=== PATIENT | male | born 1960 | race Caucasian/White ===

== ENCOUNTER 2017-07-01 23:28 | Emergency (ER) | payer OTHER ==
[~2017-07-01] VITALS: Ht 172.7 cm; Wt 122.0 kg
[2017-07-01] MEDS ORDERED: IV D5W-0.45% NS +20 KCL 1,000 ML IV ONE (23:45)
[2017-07-02] MEDS ORDERED: IV D5 1/2 NS 1000 ML 1,000 ML IV ONE (00:11)
[2017-07-02 00:30] LABS: CARBON DIOXIDE 23 mmol/L (21-32); CHLORIDE 95 mmol/L (98-107); CREATININE 0.9 mg/dL (0.6-1.3); GLUCOSE 81 mg/dL (74-106); POTASSIUM 4.4 mmol/L (3.5-5.1); UREA NITROGEN, BLOOD 8 mg/dL (7-18)
[2017-07-02 00:31] LABS: ETHANOL 286 MG/DL (0-0)
[2017-07-02 00:33] LABS: BASOPHILS % (AUTO) 0.4 % (0.0-2.0); EOSINOPHILS # (AUTO) 0.2 K/uL (0.0-0.7); EOSINOPHILS % (AUTO) 2.4 % (0.0-7.0); HEMATOCRIT 45.4 % (36.7-47.1); HEMOGLOBIN 15.7 g/dL (12.5-16.3); LYMPHOCYTES # (AUTO) 2.6 K/uL (20.0-40.0); MEAN CORPUSCULAR HEMOGLOBIN 34.4 uug (23.8-33.4); MEAN CORPUSCULAR HGB CONC 35 g/dL (32.5-36.3); MEAN CORPUSCULAR VOLUME 99.5 fL (73.0-96.2); MONOCYTES # (AUTO) 0.8 K/uL (2.0-10.0); MONOCYTES % (AUTO) 9.2 % (0.0-11.0); NEUTROPHILS # (AUTO) 5.1 K/uL (1.8-8.9); PLATELET COUNT (AUTO) 230 K/uL (152-348); RED BLOOD CELL COUNT(AUTO) 4.57 MIL/uL (4.06-5.63); WHITE BLOOD COUNT (AUTO) 8.8 K/uL (3.6-10.2)
[2017-07-02 00:35] LABS: ALANINE AMINOTRANSFERASE 22 U/L (16-63); ALKALINE PHOSPHATASE 57 U/L (50-136); ASPARTATE AMINOTRANSFERASE 19 U/L (15-37); BILIRUBIN,DIRECT 0.1 mg/dL (0.0-0.2); BILIRUBIN,TOTAL 0.3 mg/dL (0.2-1.0)
[2017-07-02 00:36] LABS: ACETAMINOPHEN < 2.0 ug/mL (10-30)
[2017-07-02 00:43] LABS: THYROID STIMULATING HORMONE 3.471 mIU/mL (0.358-3.740)
--- NOTE | 2017-07-02 01:23 | NUR ---
BP LOW, DR. GIBSON NOTIFIED. PATIENT IS A/O, TALKING WIOTH FAMILY, DENIES ANY DIZZINESS. IVF INFUSING.
--- NOTE | 2017-07-02 01:29 | NUR ---
SPOKE WITH JNONIE FROM [facility]. AWAITING CALL BACK FROM ROCA[facility] S[facility]LER.
[2017-07-02] MEDS ORDERED: IV NORMAL SALINE 1000 ML BAG IV ONE (01:30)
--- NOTE | 2017-07-02 02:00 | NUR ---
Reinstructed patient need for urine sample for urinalysis/culture.
--- NOTE | 2017-07-02 03:00 | NUR ---
Patient sleeping comfortably in bed. No acute distress
--- NOTE | 2017-07-02 04:00 | NUR ---
Notified MD of patient somewhat hypotensive despite IVF. No new orders. Per MD, patient is BP stable
[2017-07-02 05:13] LABS: *BILIRUBIN,URIN NEGATIVE (NEGATIVE); *BLOOD, URINE NEGATIVE (NEGATIVE); *CLARITY,URINE CLEAR (CLEAR); *COLOR,URINE STRAW (YELLOW); *KETONES,URINE NEGATIVE (NEGATIVE); *PROTEIN,URINE NEGATIVE (NEGATIVE); *UROBILINOGEN,URINE 0.2 E.U./dl (NORMAL); LEUKOCYTE ESTERASE ,URINE NEGATIVE (NEGATIVE); NITRITE, URINE NEGATIVE (NEGATIVE); UGLUCOSE NEGATIVE (NEGATIVE)
[2017-07-02 05:22] LABS: BACTERIA,URINE NONE SEEN /HPF (NONE SEEN); RBC,URINE NONE SEEN /HPF (0-3); SQUAMOUS EPITHELIAL CELL,UR FEW /HPF (NONE SEEN); WBC,URINE NONE SEEN /HPF (0-3)
[2017-07-02 05:35] LABS: *AMPHETAMINE, URINE NEGATIVE (NEGATIVE); *BARBITURATE, URINE NEGATIVE (NEGATIVE); *CANNABINOID, URINE NEGATIVE (NEGATIVE); *COCCAINE, URINE NEGATIVE (NEGATIVE); *OPIATE, URINE NEGATIVE (NEGATIVE); *PHENCYCLIDINE SCREEN,URINE NEGATIVE (NEGATIVE)
--- NOTE | 2017-07-02 05:45 | NUR ---
Dr Pompa at bedside for reassessment and evaluation
--- NOTE | 2017-07-02 06:04 | NUR ---
Patient discharged to home in stable conditon. Written and verbal after care instructions given. Patient verbalizes understanding of instructions.
[2017-07-02 06:06] VITALS: BP 108/53
== END 2017-07-02 06:05 | disposition home or self-care (01) ==
LOC: ER 23:31
DX: G43.B0 Ophthalmoplegic migraine, not intractable (principal); E11.9 Type 2 diabetes mellitus without complications; I10 Essential (primary) hypertension; Z98.84 Bariatric surgery status; F17.200 Nicotine dependence, unspecified, uncomplicated; Z90.49 Acquired absence of other specified parts of digestive tract
CPT/HCPCS: 36415; 70030-TC; 70450; 71045; 80307; 83605; 84443; 85025; 85730; 87040; 87086; 93005; A4663; G0480; G0480-TC; J3490; J7030